=== PATIENT | female | born 1990 | race Caucasian/White ===

== ENCOUNTER 2016-09-17 04:14 | Outpatient (CLI) | payer OTHER ==
[~2016-09-17] VITALS: Ht 170.2 cm; Wt 92.9 kg
[~2016-09-17 04:14] MED LIST: BIOTIN 5000MCG PO; CALAN SR,COVER120 MG PO; CELEXA10 M1 PO; CRANBERRY TABL1 EACH PO; FLUOXETINE HCL40 MG PO; HYDROCODON-ACE1 EAC7 PO; KLONOPIN0.5 M1 PO; MIRENA52 MG IY; MULTIPLE VITAM1 EACH PO; OMEPRAZOLE40 M1 PO; TAMIFLU75 MG PO; TYLENOL EXTRA500 MG PO; VALIUM5 MG PO; ZOFRAN ODT4 MG PO
[2016-09-17 04:28] VITALS: BP 109/73
[2016-09-17 06:34] LABS: ADD MIUA? YES; BILIRUBIN SMALL; BLOOD NEGATIVE; COLOR DK YELLOW ((YELLOW)); GLUCOSE (STRIP) NEGATIVE; KETONES >=80; LEUKOCYTES SMALL; NITRITE NEGATIVE; PH, URINE 5.5 (5-8); PROTEIN (STRIP) NEGATIVE; SPECIFIC GRAVITY 1.023 (1.000-1.030)
[2016-09-17 06:41] VITALS: BP 108/56
[2016-09-17 07:15] LABS: EPITHELIAL CELLS RARE /HPF; RED BLOOD CELLS 0-5 /HPF (0-5)
[2016-09-17 07:16] LABS: BACTERIA 1+ /HPF; CASTS NONE SEEN /LPF; CRYSTALS NONE SEEN; MUCUS RARE /LPF; UCUL ADDED? NO
[2016-09-17 07:23] LABS: AMPHETAMINES QUANT VALUE 0 NG/ML; BARBITUATES QUANT VALUE 0 NG/ML; BENZODIAZEPINES QUANT VALUE 0 NG/ML; BENZODIAZEPINES, URINE SCREEN Negative (200 ng/mL); MARIJUANA QUANT VALUE 0 NG/ML; OPIATES QUANTITATIVE VALUE 0 NG/ML; PHENCYCLIDINE QUANT VALUE 0 NG/ML
[2016-09-17] MEDS ORDERED: PRENATAL TABLE1 EACH PO (08:06)
[2016-09-17 08:34] VITALS: BP 109/59
== END 2016-09-17 09:37 | disposition home or self-care (01) ==
LOC: LDRP-OP 04:14 → 2WEST 04:15 → LDRP-OP 10-30 22:11
PROVIDERS: Advanced Practice Midwife
DX: O21.8 Other vomiting complicating pregnancy (principal); O26.893 Other specified pregnancy related conditions, third trimester; R19.7 Diarrhea, unspecified; O36.8130 Decreased fetal movements, third trimester, not applicable or unspecified; Z3A.37 37 weeks gestation of pregnancy
CPT/HCPCS: 59025; 81003; 87086; G0378; J2405; J7120

== ENCOUNTER 2016-10-05 07:59 | Inpatient (IN) | payer OTHER ==
[2016-10-05] VITALS (19 sets, daily range): BP systolic 93–138; BP diastolic 49–82
[~2016-10-05] VITALS: Ht 170.2 cm; Wt 92.0 kg
[~2016-10-05 07:59] MED LIST changes: +PRENATAL TABLE1 EACH PO
[2016-10-05] MEDS ORDERED: EVENING PRIMR1000 MG VG (08:48)
[2016-10-05] MEDS ORDERED: BENADRYL25 MG PO (08:49)
[2016-10-05 10:20] LABS: EOSINOPHIL (%) 0.3 % (0-5); HEMATOCRIT 33.4 % (36.0-46.0); IMMATURE GRANULOCYTE (%) 0.3 % (0.0-0.7); LYMPHOCYTE COUNT 1.4 K/uL (1.0-2.8); MCH 25.9 PG (29.0-34.0); MCHC 30.8 G/DL (30.0-36.0); MCV 84.1 FL (83-99); MEAN PLAT.VOLUME 12.1 uM^3 (9.5-12.4); MONOCYTE (%) 8.7 % (3-12); MONOCYTE COUNT 0.7 K/uL (0-0.8); NEUTROPHIL (%) 73.1 % (45-76); NEUTROPHIL COUNT 5.8 K/uL (1.8-6.4); PLATELET COUNT 203 K/uL (156-360); RBC DIS.WIDTH-CV 13.3 % (11.8-14.6); RBC DIS.WIDTH-SD 40.1 % (39-53); RED BLOOD COUNT 3.97 M/uL (3.80-5.20); WHITE BLOOD COUNT 7.9 K/uL (4.1-10.2)
[2016-10-05 12:09] LABS: BILIRUBIN NEGATIVE; BLOOD NEGATIVE; COLOR YELLOW ((YELLOW)); GLUCOSE (STRIP) NEGATIVE; KETONES NEGATIVE; LEUKOCYTES NEGATIVE; NITRITE NEGATIVE; PROTEIN (STRIP) NEGATIVE; SPECIFIC GRAVITY 1.014 (1.000-1.030); UROBILINOGEN 0.2 MG/DL (0.2-1.0)
[2016-10-05 12:10] LABS: ADD MIUA? NO; UCUL ADDED? NO
[2016-10-06] VITALS (34 sets, daily range): BP systolic 85–135; BP diastolic 50–82
[2016-10-07] VITALS (7 sets, daily range): BP systolic 112–124; BP diastolic 50–76
[2016-10-08 08:34] VITALS: BP 127/86
[2016-10-08] MEDS ORDERED: IBUPROFEN800 MG PO (08:52)
[2016-10-08 09:15] VITALS: BP 114/69
[2016-10-08 09:20] LABS: EOSINOPHIL COUNT 0.1 K/uL (0-0.3); HEMATOCRIT 29.6 % (36.0-46.0); IMMATURE GRANULOCYTE (%) 0.4 % (0.0-0.7); LYMPHOCYTE COUNT 1.7 K/uL (1.0-2.8); MCH 26.9 PG (29.0-34.0); MCHC 31.8 G/DL (30.0-36.0); MCV 84.8 FL (83-99); MEAN PLAT.VOLUME 12.4 uM^3 (9.5-12.4); MONOCYTE (%) 7.2 % (3-12); MONOCYTE COUNT 0.7 K/uL (0-0.8); NEUTROPHIL (%) 73.3 % (45-76); PLATELET COUNT 168 K/uL (156-360); RBC DIS.WIDTH-CV 13.6 % (11.8-14.6); RBC DIS.WIDTH-SD 41.1 % (39-53); RED BLOOD COUNT 3.49 M/uL (3.80-5.20); WHITE BLOOD COUNT 9.5 K/uL (4.1-10.2)
== END 2016-10-08 13:39 | disposition home or self-care (01) | DRG 775 ==
LOC: LDRP-OP 07:59 → 2WEST 08:00 → LDRP-OP 08:09 → 2WEST 10-06 23:35 → LDRP-OP 10-30 09:43
PROVIDERS: Advanced Practice Midwife; Obstetrics & Gynecology
DX: O48.0 Post-term pregnancy (principal); O69.81X0 Labor and delivery complicated by cord around neck, without compression, not applicable or unspecified; O99.284 Endocrine, nutritional and metabolic diseases complicating childbirth; E06.3 Autoimmune thyroiditis; O99.844 Bariatric surgery status complicating childbirth; O99.214 Obesity complicating childbirth; E66.3 Overweight; Z3A.40 40 weeks gestation of pregnancy; Z37.0 Single live birth; Z68.25 Body mass index [BMI] 25.0-25.9, adult; Z98.84 Bariatric surgery status
CPT/HCPCS: 81003; 85025; C1755; G0378; J1050; J2795; J3010; J7120